=== PATIENT | male | born 1955 | race American Indian/Alaskan Native ===

== ENCOUNTER 2017-12-20 19:40 | Emergency (ER) | payer OTHER ==
[2017-12-20 19:49] VITALS: BP 138/98
--- NOTE | 2017-12-20 22:53 | XRay Report ---
FINAL REPORT PROCEDURE: XR KNEE 3V LT TECHNIQUE: Left knee, three views HISTORY: knee pain COMPARISON: No prior studies are available for comparison. FINDINGS: No acute fracture or dislocation is seen. No focal osseous lesion. There are tricompartmental osteoarthritic changes, with joint space narrowing. Small joint effusion. IMPRESSION: No acute fracture or joint dislocation is seen
[2017-12-20] MEDS ORDERED: MOTRIN PO ONE (22:57)
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
== END 2017-12-20 23:57 | disposition home or self-care (01) ==
LOC: ED 19:40
DX: S86.912A Strain of unspecified muscle(s) and tendon(s) at lower leg level, left leg, initial encounter (principal); F17.200 Nicotine dependence, unspecified, uncomplicated; V89.2XXA Person injured in unspecified motor-vehicle accident, traffic, initial encounter; Y93.89 Activity, other specified; Y99.8 Other external cause status; Y92.410 Unspecified street and highway as the place of occurrence of the external cause
CPT/HCPCS: 99283

== ENCOUNTER 2018-01-29 10:36 | Emergency (ER) | payer SELFPAY ==
[2018-01-29 11:09] VITALS: BP 134/81
--- NOTE | 2018-01-29 11:32 | XRay Report ---
ROUTINE CHEST, TWO VIEWS: HISTORY: Hemoptysis. No comparison. There is focal scarring and volume loss in the right apical region. The etiology of this is unclear. Previous tuberculosis cannot be excluded. The remainder of the lungs are clear. No evidence for mass or pneumonia. No pleural effusion or pneumothorax. Normal heart size and pulmonary vascularity. The thoracic cage is grossly intact. IMPRESSION: Right apical scarring as described. No acute process identified.
[2018-01-29 13:28] LABS: BUN/Creatinine Ratio 20; Blood Urea Nitrogen 14 mg/dL (9-20); Calcium 9.3 mg/dL (8.4-10.2); Hemolysis Index 2
--- NOTE | 2018-01-29 13:39 | Emergency Department Report ---
Blank Doc - Documentation Documentation: Patient is a 62-year-old black male who has a history of smoking who is presenting with cough with productive sputum. Patient states in the sputum receives some blood-tinged material. Patient denies any fever but does have some mild shortness of breath. Chest x-ray a left wrist does be obtained. Nd
[2018-01-29 13:46] LABS: Hematocrit 38.9 % (35.5-45.6); Hemoglobin 12.2 gm/dl (11.8-15.2); Mean Corpuscular HGB Conc 31 % (32-34); Mean Corpuscular Volume 78 fl (84-94); Platelet Count 217 K/mm3 (140-440); Red Blood Count 5.02 M/mm3 (3.65-5.03); Red Cell Distribution Width 13.5 % (13.2-15.2)
[2018-01-29 13:51] LABS: Mean Corpuscular Hemoglobin 24 pg (28-32)
[2018-01-29 14:01] LABS: INR 0.86 (0.87-1.13)
[2018-01-29 14:02] LABS: Partial Thromboplastin Time 33.6 Sec. (24.2-36.6)
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
== END 2018-01-29 15:50 | disposition home or self-care (01) ==
LOC: ED 10:36
DX: B34.9 Viral infection, unspecified (principal); R04.2 Hemoptysis; I10 Essential (primary) hypertension; F17.200 Nicotine dependence, unspecified, uncomplicated
CPT/HCPCS: 36415; 71046; 80048; 85027; 85610; 85730; 99283